=== PATIENT | female | born 1955 | race Caucasian/White ===

== ENCOUNTER → 2024-05-25 | Outpatient (CLI) | payer OTHER | LOC: LAB SHORT 15:34 → LAB 15:34 | DX: R30.0 Dysuria (principal) | CPT/HCPCS: 87077; 87086; 87186 ==

== ENCOUNTER → 2024-08-15 | Outpatient (CLI) | payer OTHER | END | disposition home or self-care (01) | LOC: LAB SHORT 08:01 → LAB 08:01 | DX: D23.111 Other benign neoplasm of skin of right upper eyelid, including canthus (principal) | CPT/HCPCS: 88305 ==